=== PATIENT | male | born 1955 | race African-American/Black ===

== ENCOUNTER 2021-10-09 17:01 | Emergency (ER) | payer BC ==
--- NOTE | 2021-10-09 18:48 | XRay Report ---
RIGHT HAND 4 VIEW(S) INDICATION / CLINICAL INFORMATION: injury COMPARISON: None available. FINDINGS: BONES / JOINT(S): Acute moderately displaced transverse fracture mid ring finger proximal phalanx wit h ulnar displacement distal fracture fragment. Nondisplaced transverse fracture of little finger midd le portion proximal phalanx. 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 SOFT TISSUES: No significant abnormality. ADDITIONAL FINDINGS: None. IMPRESSION: 1. Acute fractures involving the ring and little finger proximal phalanges described above Signer Name: Darek Benites MD Signed: 10/09/2021 6:43 PM Workstation Name: [id number]
[2021-10-09] MEDS ORDERED: HYDROcodone/ACETAMINOPHEN 5-325 MG TAB PO ONE (21:47)
[2021-10-09] MEDS ORDERED: ONDANSETRON 4 MG ODT TAB PO ONE (21:47)
--- NOTE | 2021-10-10 00:08 | Emergency Department Report ---
ED Upper Extremity Inj HPI - General Chief Complaint: Extremity Injury, Upper Stated Complaint: HAND INJURY Source: patient Mode of arrival: Ambulatory Limitations: No Limitations - History of Present Illness Initial Comments: Patient is a 66-year-old [place] male with no past medical history who presents to the ED with complaint of acute onset persistent right hand pain with swelling on right ring and small finger after he slipped and fell down about 7 hours ago landing on the right hand. Patient states that he was trying to push the door to prevent it from falling when he slipped and fell down. Patient denies head or neck injuries, dizziness, syncope, loss of consciousness, seizures, nausea and vomiting, back pain, numbness and tingling or weakness of upper and lower extremities bilaterally or change in vision. MD Complaint: Injury to:: right, hand, finger (4th and 5th finger pain) -: hour(s) (7) Other Extremity Injury: Fingers: Right (Right ring and small finger pain and swelling), Hand: Right (Right hand pain and swelling) Other Injuries: none Handedness: right Place: home Severity scale (0 -10): 8 Improves With: none Worsens With: movement of extremity (Right hand) Context: fall, direct blow, injury Associated Symptoms: denies other symptoms. denies: weakness, numbness, neck pain, suspects foreign body, nausea/vomiting, heard/felt popping sensat - Related Data Previous Rx's Medication Instructions Recorded Last Taken Type HYDROcodone/APAP 5-325 [Amelia 1 each PO Q6HR PRN #12 tablet 10/10/21 Unknown Rx 5/325] Allergies Allergy/AdvReac Type Severity Reaction Status Date / Time aspirin Allergy Itching Verified 08/04/19 15:02 ED Review of Systems ROS: Stated complaint: HAND INJURY Other details as noted in HPI Constitutional: denies: chills, fever Eyes: denies: eye pain, eye discharge, vision change ENT: denies: ear pain, throat pain Respiratory: denies: cough, shortness of breath, wheezing Cardiovascular: denies: chest pain, palpitations Endocrine: no symptoms reported Gastrointestinal: denies: abdominal pain, nausea, diarrhea Genitourinary: denies: urgency, dysuria Musculoskeletal: joint swelling (Right hand swelling), arthralgia (Right hand and right ring finger and small finger pain). denies: back pain Skin: denies: rash, lesions Neurological: denies: headache, weakness, paresthesias Psychiatric: denies: anxiety, depression Hematological/Lymphatic: denies: easy bleeding, easy bruising ED Past Medical Hx - Social History Smoking Status: Never Smoker Substance Use Type: None - Medications Home Medications: Home Medications Medication Instructions Recorded Confirmed Last Taken Type HYDROcodone/APAP 5-325 [Amelia 1 each PO Q6HR PRN #12 tablet 10/10/21 Unknown Rx 5/325] ED Physical Exam - General Limitations: No Limitations General appearance: alert, in no apparent distress - Head Head exam: Present: atraumatic, normocephalic, normal inspection - Eye Eye exam: Present: normal appearance, PERRL, EOMI - ENT ENT exam: Present: normal exam, normal orophraynx, mucous membranes moist, TM's normal bilaterally, normal external ear exam - Neck Neck exam: Present: normal inspection, full ROM. Absent: tenderness - Respiratory Respiratory exam: Present: normal lung sounds bilaterally. Absent: respiratory distress, wheezes, rales, chest wall tenderness, accessory muscle use, prolonged expiratory - Cardiovascular Cardiovascular Exam: Present: regular rate, normal rhythm, normal heart sounds. Absent: systolic murmur, diastolic murmur, rubs, gallop - GI/Abdominal GI/Abdominal exam: Present: soft, normal bowel sounds. Absent: tenderness, guarding, rebound, hyperactive bowel sounds, hypoactive bowel sounds - Extremities Exam Extremities exam: Present: normal inspection, tenderness (Palpable tenderness of right hand and right ring and small fingers with limited range of motion due to pain), normal capillary refill, joint swelling (Mild swelling of right hand and right ring finger). Absent: full ROM (Limited range of motion of right hand due to pain), pedal edema, calf tenderness, other - Back Exam Back exam: Present: normal inspection, full ROM. Absent: tenderness, CVA tenderness (R), CVA tenderness (L), muscle spasm, paraspinal tenderness, vertebral tenderness - Neurological Exam Neurological exam: Present: alert, oriented X3, CN II-XII intact, normal gait, reflexes normal - Psychiatric Psychiatric exam: Present: normal affect, normal mood - Skin Skin exam: Present: warm, dry, intact, normal color. Absent: rash ED Course Vital Signs 10/09/21 10/10/21 18:06 00:26 Temperature 98.3 F Pulse Rate 66 69 Respiratory 14 14 Rate Blood Pressure 131/84 137/81 [Right] O2 Sat by Pulse 99 100 Oximetry ED Medical Decision Making - Radiology Data Radiology results: report reviewed, image reviewed [facility] [address] [place] [address] XRay Report Signed Patient: FAISAL TUCKER V MR#: [id number] : 1955 Acct:[id number] Age/Sex: 66 / M ADM Date: 10/09/21 Loc: ED Attending Dr: Ordering Physician: RAQUEL BHATTI MD Date of Service: 10/09/21 Procedure(s): XR hand 3+V RT Accession Number(s): [id number] cc: RAQUEL BHATTI MD Fluoro Time In Minutes: RIGHT HAND 4 VIEW(S) INDICATION / CLINICAL INFORMATION: injury COMPARISON: None available. FINDINGS: BONES / JOINT(S): Acute moderately displaced transverse fracture mid ring finger proximal phalanx with ulnar displacement distal fracture fragment. Nondisplaced transverse fracture of little finger middle portion proximal phalanx. 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 SOFT TISSUES: No significant abnormality. ADDITIONAL FINDINGS: None. IMPRESSION: 1. Acute fractures involving the ring and little finger proximal phalanges described above Signer Name: Darek Benites MD Signed: 10/09/2021 6:43 PM Workstation Name: [id number] Transcribed By: TL Dictated By: Darek Benites MD Electronically Authenticated By: Darek Benites MD Signed Date/Time: 10/09/211842 DD/ 41 TD/TT: - Medical Decision Making This is a 66-year-old [place] male with no past medical history who presents to the ED with complaint of acute onset persistent right hand pain with swelling on right ring and small finger after he slipped and fell down about 7 hours ago landing on the right hand. Patient states that he was trying to push the door to prevent it from falling when he slipped and fell down. In the ED, patient is alert and oriented x3 and is not in any distress. Patient is hemodynamically stable. Patient was treated for pain in the ED. Right hand x- ray showed acute moderately displaced transverse fracture mid ring finger proximal phalanx with ulnar displacement distal fracture fragment. Nondisplaced transverse fracture of little finger middle portion proximal phalanx. Moderate d egenerative arthrosis DIP joints right hand. Right hand was splinted with ulnar gutter splint. On reevaluation, patient is neurovascularly intact on the right hand. Patient was therefore discharged home on pain medications and also given a referral to the orthopedic surgeon on-call Dr. Morrell for follow-up. Alternately, the patient was also given a referral to Dr. Oquendo as an alternative to Dr. Morrell. Patient was advised to return to the ED immediately if symptoms get worse. - Differential Diagnosis Hand fracture; finger fracture; hand contusion; hand sprain Critical care attestation.: If time is entered above; I have spent that time in minutes in the direct care of this critically ill patient, excluding procedure time. ED Disposition Clinical Impression: Contusion of right hand including fingers Qualifiers: Encounter type: initial encounter Qualified Code(s): S60.221A - Contusion of right hand, initial encounter Displaced fracture of phalanx of right ring finger Qualifiers: Encounter type: initial encounter Fracture type: closed Phalanx: middle Qualified Code(s): S62.624A - Displaced fracture of middle phalanx of right ring finger, initial encounter for closed fracture Nondisplaced fracture of phalanx of right little finger Qualifiers: Encounter type: initial encounter Fracture type: closed Phalanx: middle Qualified Code(s): S62.656A - Nondisplaced fracture of middle phalanx of right little finger, initial encounter for closed fracture Disposition: 01 HOME / SELF CARE / HOMELESS Is pt being admited?: No Does the pt Need Aspirin: No Condition: Stable Instructions: Finger Fracture, Adult, [id number], Cast or Splint Care, Adult, [id number], Hand Contusion, [id number] Additional Instructions: The right hand x-ray showed acute moderately displaced transverse fracture mid ring finger proximal phalanx with ulnar displacement distal fracture fragment. Nondisplaced transverse fracture of little finger middle portion proximal phalanx. 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 Therefore take medication with food, drink plenty of fluids, follow-up with the orthopedic surgeon Dr. Morrell for further evaluation. Contact Dr. Morrell's office first thing in the morning on October 10, 2021 to schedule a follow-up appointment. Return to the ED immediately if symptoms get worse. Prescriptions: HYDROcodone/APAP 5-325 [Amelia 5/325] 1 each PO Q6HR PRN #12 tablet PRN Reason: Pain Referrals: FEDE MORRELL MD [Staff Physician] - 3-5 Days KAYKAY BYNUM MD [Referring] - 3-5 Days Time of Disposition: 00:09 Print Language: MICRONESIAN
[2021-10-10 00:27] VITALS: BP 137/81
== END 2021-10-10 00:27 | disposition home or self-care (01) ==
LOC: ED 17:01
DX: S62.624A Displaced fracture of middle phalanx of right ring finger, initial encounter for closed fracture (principal); S62.656A Nondisplaced fracture of middle phalanx of right little finger, initial encounter for closed fracture; S60.221A Contusion of right hand, initial encounter; W19.XXXA Unspecified fall, initial encounter; Y93.89 Activity, other specified; Y92.89 Other specified places as the place of occurrence of the external cause; Y99.8 Other external cause status; Z88.6 Allergy status to analgesic agent
CPT/HCPCS: 99283; J3490; Q0162